=== PATIENT | female | born 1940 | race Hispanic/Latino ===

== ENCOUNTER 2020-04-16 15:17 | Inpatient (IN) | payer OTHER ==
--- OUTSIDE RECORDS SUMMARY | 2020-04-16 15:27 | XMS REPORT ---
:1940 Author Organization eClinicalWorks Care Team Providers Name Role Phone Naqvi, Na Provider Role Unavailable Allergies No Known Allergies Problems Problem Type Condition Code Onset Dates Condition Statu s Problem Tobacco abuse counseling Z71.6 Act eneida Problem Tobacco abuse Z72.0 Active Problem Pleural effusion J90 Active Problem Allergic rhinitis, unspecified J30.9 Active seasonality, unspecified trigger Problem COPD (chronic obstructive pulmonary J44.9 Active disease) Problem Elevated blood pressure reading I10 Active with diagnosis of hypertension Problem Obesity E66.9 Active Problem HTN (hypertension) I10 Active Problem Overactive bladder N32.81 Active Problem Cold intolerance R68.89 Active Problem Mild memory disturbance R41.3 Acti ve Problem 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 Active Problem Cigarette nicotine dependence with F17.218 Active other nicotine-induced disorder Problem Gastro-esophageal reflux disease K21.9 Active without esophagitis Problem Allergic rhinitis, seasonal J30.2 Active Problem Urinary incontinence R32 Active Problem Constipation, unspecified K59.00 Ac tive Problem Nicotine dependence F17.200 Active Problem Liver cyst K76.89 Active Problem Mixed hyperlipidemia E78.2 Active Problem Chronic obstructive pulmonary J44.0 Active disease with acute lower respiratory infection Problem CAD (coronary artery disease) I25.10 Active Problem Symptomatic postsurgical menopause E89.41 Active Problem Atelectasis of left lung J98.11 Act eneida Medications Medication Code Code Instructions Start End Date Status Dosage System Date Myrbetriq [facility] 07267512427 50 MG Orally February 09, April 10, Active 1 tablet Once a day 2019 [address] [facility] 89849010697 10 MG Inactive TAKE ONE TABLET BY MOUTH DAILY Results No Known Results Summary Purpose eClinicalWorks Submission
--- OUTSIDE RECORDS SUMMARY | 2020-04-16 15:27 | XMS REPORT | Continuity of Care Document ---
:1940 Author Organization [facility] t Address [address] [place] [address] Care Team Providers Name Role Phone Unavailable Unavailable Unavailable Problems Condition Condition Condition Status Onset Resolution Last Treating Co mments Source Name Details Category Date Date Treatment Clinician Date Tobacco Tobacco Problem Active [facility] counseling [facility] Tobacco Tobacco Problem Active [facility] abuse [facility] Cold Cold Problem Active [facility] intoleranc intoleranc [facility] - e e [facility] Gastro-eso Gastro-eso Problem Active [facility] phageal phageal [facility] - reflux reflux Memoria disease disease l without without Outpati esophagiti esophagiti en t s s Clinics Mixed Mixed Problem Active [facility] hyperlipid hyperlipid [facility] - emia emia [facility] l [facility]i ent Clin[facility] Obesity Obesity Problem Active [facility] Elevated Elevated Problem Active [facility] blood blood [facility] - pressure pressure Memori a reading reading l with with Outpati diagnosis diagnosis ent of of Clinics hypertensi hypertensi on on COPD COPD Problem Active [facility] (chronic (chronic [facility] - obstructiv obstructiv Me moria e e l pulmonary pulmonary Outp ati disease) disease) ent Clinics Mild Mild Problem Active [facility] memory memory [facility] - disturbanc disturbanc Me moria e e l Outpati ent Clinics Symptomati Symptomati Problem Active [facility] c c [facility] - postsurgic postsurgic Me moria al al l menopause menopause Outp ati ent Clinics Liver cyst Liver cyst Problem Active [facility] Nicotine Nicotine Problem Active [facility] dependence dependence [facility] Pleural Pleural Problem Active [facility] effusion effusion [facility] Atelectasi Atelectasi Problem Active [facility] s of left s of left [facility] - lung lung Memoria l [facility] ent [facility] Chronic Chronic Problem Active [facility] obstructiv obstructiv [facility] - e e Memoria pulmonary pulmonary l disease [facility] with acute with acute en t lower lower Clinics respirator respirator y y infection infection Urinary Urinary Problem Active [facility] incontinen incontinen [facility] - ce ce Memoria l [facility] ent [facility] Allergic Allergic Problem Active [facility] rhinitis, rhinitis, Luke [facility] - seasonal seasonal Memori a l [facility] ent Clinics CAD CAD Problem Active [facility] (coronary (coronary [facility] - artery artery Memoria disease) disease) l [facility] ent [facility] Constipati Constipati Problem Active [facility] on, on, [facility] - unspecifie unspecifie Me moria d d l [facility] Cigarette Cigarette Problem Active [facility] nicotine nicotine [facility] - dependence dependence Me mori with other with other l nicotine-i nicotine-i Ou tpati nduced nduced ent disorder disorder Clinic s Supplement Supplement Problem Active [facility] al oxygen al oxygen [facility] - dependent dependent Souleymane dylan l [facility] ent [facility] Overactive Overactive Problem Active [facility] bladder bladder [facility] - [facility] l [facility] Allergic Allergic Problem Active [facility] rhinitis, rhinitis, [facility] - unspecifie unspecifie Me moria d d l seasonalit seasonalit Ou tpati y, y, ent unspecifie unspecifie Cl inics d trigger d trigger Right Right Problem Active [facility] upper upper [facility] - quadrant quadrant Memori a pain pain l [facility] ent [facility] Allergies, Adverse Reactions, Alerts Allergy Allergy Status Severity Reaction(s) Onset Inactive Treating Comm ents Source Name Type Date Date Clinician penicill Adverse Active Info Not [facility] in Reaction Available [facility] Amoxicil Adverse Active Info Not [facility] laura Reaction Available [facility] Medications Ordered Filled Start Stop Current Ordering Indication Dosage Frequency Signature Comments Components Source Medication Medication Date Date Medication? Clinician (SIG) Name Name Incruse Incruse 2020- Yes Na Naqvi [address] Ellipta Ellipta 03-04 [facility] - 00:[facility]: 00:00 [facility]oria 00 :00 [facility] Spiriva Spiriva Yes Na Naqvi INHALE TWO [facility] Respimat Respimat PUFFS BY Hiral es - MOUTH [facility] DAILY l Outpati ent Clinics Immunizations Ordered Filled Immunization Date Status Comments Sourc e Immunization Name Name Nacho Griffith 2019-10-[address] [facility] - 00:[facility]00 [facility] Out[facility] Nacho FluADIN 2018-08-[address] [facility] - 00[facility]00 [facility] Out[facility] Procedures This patient has no known procedures. Encounters Start End Encounter Admission Attending Care Care Encounter Source Date/Time Date/Time Type Type Clinicians Facility Department ID 2020-03-03 2020-03-03 [facility] [id number] [facility] 10[facility] 2020-02-15 2020-02-15 [facility] [id number] [facility] 11[facility]12:00 11:12:00 [facility] Medicine Out[facility] Clinics 2020-02-11 2020-02-11 [facility] [id number] [facility] 14:00:00 14:00:00 [facility] Medicine Outpat[facility] Clinics 2020-02-10 2020-02-10 [facility] [id number] [facility] 09:24:00 09:24:00 [facility] Medicine Outpat[facility] Clinics 2020-02-08 2020-02-08 [facility] [id number] [facility] 13:30:00 13:30:00 [facility] Medicine Outpat[facility] Clinics 2020-01-04 2020-01-04 [facility] [id number] [facility] 15:49:00 15:49:00 [facility] Medicine Outpat[facility] Clinics 2019-10-06 2019-10-06 [facility] [id number] [facility] 10:00:00 10:00:00 [facility] Medicine Outpat[facility] Clinics 2019-10-06 2019-10-06 [facility] [id number] [facility] 08:00:00 08:00:00 t [facility] - [facility] Medicine Outpati ent Clinics 2019-06-29 2019-06-29 [facility] [id number] [facility] 13:40:00 13:40:00 t Vasopharm s - [facility] Medicine Outpati ent Clinics 2019-01-05 2019-01-05 [facility] [id number] [facility] 10:42:00 10:42:00 t Vasopharm s - [facility] Medicine Outpati ent Clinics 2018-12-17 2018-12-17 [facility] [id number] 14:45:00 14:45:00 t Viewpoint - [facility] Medicine Outpati ent Clinics 2018-08-20 2018-08-20 [facility] [id number] [facility] 15:30:00 15:30:00 t Vasopharm s - [facility] Medicine Outpati ent Clinics 2018-03-17 2018-03-17 [facility] [id number] [facility] 14:45:00 14:45:00 t [facility]opharm s - [facility] Medicine Outpati ent Clinics Results This patient has no known results.
--- OUTSIDE RECORDS SUMMARY | 2020-04-16 15:28 | XMS REPORT ---
:1940 Author Organization eClinicalWorks Care Team Providers Name Role Phone Naqvi, Na Provider Role Unavailable Allergies No Known Allergies Problems Problem Type Condition Code Onset Dates Condition Statu s Assessment COPD (chronic obstructive pulmonary J44.9 Active disease) Problem CAD (coronary artery disease) I25.10 Active Problem Atelectasis of left lung J98.11 Act eneida Problem Tobacco abuse counseling Z71.6 Act eneida Problem HTN (hypertension) I10 Active Problem Pleural effusion J90 Active Problem Cold intolerance R68.89 Active Problem Tobacco abuse Z72.0 Active Problem Overactive bladder N32.81 Active Problem Allergic rhinitis, unspecified J30.9 Active seasonality, unspecified trigger Problem Urinary incontinence R32 Active Problem COPD (chronic obstructive pulmonary J44.9 Active disease) Problem Right upper quadrant pain R10.11 Ac tive Problem Obesity E66.9 Active Problem Cigarette nicotine dependence with F17.218 Active other nicotine-induced disorder Problem Mild memory disturbance R41.3 Acti ve Problem Elevated blood pressure reading I10 Active with diagnosis of hypertension Problem 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 Active Problem Symptomatic postsurgical menopause E89.41 Active Problem Nicotine dependence F17.200 Active Problem Constipation, unspecified K59.00 Ac tive Problem Gastro-esophageal reflux disease K21.9 Active without esophagitis Problem Mixed hyperlipidemia E78.2 Active Problem Chronic obstructive pulmonary J44.0 Active disease with acute lower respiratory infection Problem Liver cyst K76.89 Active Problem Allergic rhinitis, seasonal J30.2 Active Medications Medication Code Code Instructions Start End Status Dosage System Date Date Montelukast NDC 01791181977 10 MG Orally February Active 1 t ablet Sodium Once a day 2019 Accolate NDC 56594729429 20 MG Inactive TAKE ONE TABLET BY MOUTH TWICE A DAY Results No Known Results Summary Purpose eClinicalWorks Submission
--- OUTSIDE RECORDS SUMMARY | 2020-04-16 15:28 | XMS REPORT ---
[...] Start End Status Dosage System Date Date Incruse NDC 94595521218 62.5 MCG/INH March 04, Aug 31, Active 1 puff Ellipta Inhalation Once 2019 2019 a day Spiriva NDC 69602783620 2.5 MCG/ACT Inactive INHALE Respimat TWO PUFFS BY MOUTH DAILY Results No Known Results Summary Purpose eClinicalWorks Submission
--- OUTSIDE RECORDS SUMMARY | 2020-04-16 15:28 | XMS REPORT ---
[...] Start End Status Dosage System Date Date Omeprazole ND 38592167360 40 MG Active TAKE ONE CAPSULE BY MOUTH DAILY Lisinopril ND 42843886670 10 MG Orally Active 1 ta blet Once a day VESIcare ND 09719592530 10 MG Active TAKE ONE TABLET BY MOUTH DAILY Verapamil HCl ND 90437968352 240 MG Orally Active 1 tablet ER Once a day Zyrtec Allergy ND 38618917819 10 MG Orally Active 1 tablet Once a day Omeprazole ND 54980233384 40 MG Orally Active 1 ca psule Once a day Xopenex HFA ND 10041158919 45 MCG/ACT Active INHAL E TWO PUFFS BY MOUTH EVERY 4 HOURS NEEDED Spiriva [facility] 11337957513 2.5 MCG/ACT Active INHALE T WO Respimat PUFFS BY MOUTH DAILY Lisinopril [facility] 11565251315 10 MG Orally Active 1 ta blet Once a day Spiriva [facility] 76080183207 2.5 microgram Active 2 puff s Respimat Inhaled Once a day Flonase [facility] 34673982005 50 MCG/ACT Active 2 spray i n Nasally Once a each day nostril Accolate [facility] 92524801992 20 MG Active TAKE ONE TABLET BY MOUTH TWICE A DAY VESIcare [facility] 78560639502 5 MG Orally Once Active 1 tablet a day Omeprazole [facility] 09790835372 40 MG Orally Active 1 ca psule Once a day Verapamil HCl [facility] 43293710191 240 MG Orally Active 1 tablet ER Once a day Advair Diskus [facility] 87059434775 250-50 MCG/DOSE Active 1 puff Inhalation Twice a day Dyazide [facility] 48025150266 37.5-25 MG Active TAKE ONE CAPSULE BY MOUTH EVERY MORNING Maxzide-25 [facility] 46648825644 37.5-25 MG Active 1 tabl et Orally Once a in the day morning Albuterol [facility] 74773573187 (2.5 MG/3ML) Active 3 ml as Sulfate 0.083% needed Inhalation Three times a day prn sob/wheezing Xopenex HFA [facility] 54804155209 45 MCG/ACT Active 1 puf f as Inhalation every needed 4 hrs Results No Known Results Summary Purpose eClinicalWorks Submission
--- OUTSIDE RECORDS SUMMARY | 2020-04-16 15:28 | XMS REPORT ---
:1940 Author Organization eClinicalWorks Care Team Providers Name Role Phone Naqvi, Na Provider Role Unavailable Allergies, Adverse Reactions, Alerts Substance Reaction Event Type penicillin Info Not Available Drug Allergy Amoxicillin Info Not Available Drug Allergy Problems Problem Type Condition Code Onset Dates Condition Statu s Assessment Overactive bladder N32.81 Active Assessment Allergic rhinitis, unspecified J30.9 Active seasonality, unspecified trigger Assessment Gastro-esophageal reflux disease K21.9 Active without esophagitis Assessment Right upper quadrant pain R10.11 Ac tive Assessment COPD (chronic obstructive pulmonary J44.9 Active disease) Assessment Elevated blood pressure reading I10 Active with diagnosis of hypertension Problem CAD (coronary artery disease) I25.10 Active [...] Start End Status Dosage System Date Date Xopenex HFA [facility] 34827551249 45 MCG/ACT Active INHAL E TWO PUFFS BY MOUTH EVERY 4 HOURS NEEDED Spiriva [facility] 33443928902 2.5 MCG/ACT Active INHALE T WO Respimat PUFFS BY MOUTH DAILY Omeprazole [facility] 21985192570 40 MG Orally Active 1 ca psule Once a day Myrbetriq [facility] 84630339712 50 MG Orally February 09April Active 1 t ablet Once a day 2019 Verapamil HCl [facility] 55923517402 240 MG Orally Active 1 tablet ER Once a day Lisinopril [facility] 49386415525 10 MG Orally Active 1 ta blet Once a day Advair Diskus [facility] 17063224735 250-50 MCG/DOSE Active 1 puff Inhalation Twice a day Zyrtec Allergy [facility] 75670730642 10 MG Orally Active 1 tablet Once a day VESIcare [facility] 82157089886 5 MG Orally Once Active 1 tablet a day Flonase [facility] 39456636400 50 MCG/ACT Active 2 spray i n Nasally Once a each day nostril Maxzide-25 [facility] 93193347722 37.5-25 MG Active 1 tabl et Orally Once a in the day morning VESIcare [facility] 59627119829 10 MG Active TAKE ONE TABLET BY MOUTH DAILY Albuterol [facility] 16824573578 (2.5 MG/3ML) Active 3 ml as Sulfate 0.083% needed Inhalation Three times a day prn sob/wheezing Xopenex HFA [facility] 23627736600 45 MCG/ACT Active 1 puf f as Inhalation every needed 4 hrs Omeprazole [facility] 56893263591 40 MG Orally Active 1 ca psule Once a day Accolate [facility] 11562936132 20 MG Active TAKE ONE TABLET BY MOUTH TWICE A DAY Results No Known Results Summary Purpose eClinicalWorks Submission
[2020-04-16 16:52] LABS: Absolute Lymphocytes (CBC) 1.6 K/uL (0.7-4.9); Basophils % 0.5 % (0-1.3); Hematocrit 32.8 % (36.0-45.0); Lymphocytes % 26.9 % (15.3-44.8); MPV 7.8 fL (7.6-11.3); RBC Red Blood Cell Count 3.43 M/uL (3.86-4.86)
[2020-04-16 17:15] LABS: Albumin 3.7 g/dL (3.4-5.0); Bilirubin Direct 0.1 mg/dL (0-0.2); Bilirubin Total 0.3 mg/dL (0.2-1.0); Magnesium 1.9 mg/dL (1.8-2.4); Potassium 5.2 mmol/L (3.5-5.1); Protein, Total 7.1 g/dL (6.4-8.2)
--- NOTE | 2020-04-16 17:30 | RAD REPORT ---
EXAM DESCRIPTION: Ila Single View04/16/2020 4:50 pm CLINICAL HISTORY: Cough COMPARISON: 2017 FINDINGS: Lungs are hyperaerated with bibasilar scarring. The lungs appear clear of acute infiltrate. The heart is borderline enlarged IMPRESSION: No acute abnormalities displayed
[2020-04-16] MEDS ORDERED: IPRATROPIUM BROM 0.5MG/2.5ML ONE (17:36)
[2020-04-16] MEDS ORDERED: METHYLPREDNISOLONE 125 MG INJ ONE (17:36)
[2020-04-16] MEDS ORDERED: LEVALBUTEROL 1.25 MG/3 ML NEB ONE (17:37)
[2020-04-16] MEDS ORDERED: NA CHLORIDE 0.9% 1,000 ML ONE (17:37)
[2020-04-16 17:40] LABS: Troponin (Emerg Dept Use Only) 1.21 ng/mL (0.0-0.045)
--- NOTE | 2020-04-16 17:56 | ER ---
Nurse's Notes [facility] Name: Amparo Rios Age: 79 yrs Sex: Female : 1940 Arrival Date: 04/16/2020 Time: 15:19 Bed 7 Private MD: Diagnosis: Dyspnea;Chronic obstructive pulmonary disease with (acute) exacerbation;Non-ST elevation (NSTEMI) myocardial infarction;Hyperkalemia;Unspecified kidney failure-insufficency Presentation: 04/16 15:52 Chief complaint: Patient states: "I took some cough syrup yesterday and I started aa5 choking on it, coughing, and I've been short of breath ever since". Pt also c/o "choking feeling to throat". Pt reports hx of COPD. Reports baseline cough, reports increased SOB. 15:52 Coronavirus screen: Patient reports a cough. Patient reports shortness of breath or aa5 difficulty breathing. Patient denies measured and/or subjective temperature greater than 100.4F prior to today's visit. Patient denies travel on a cruise ship or to a country the [facility] currently lists as an affected area. Patient denies contact with known and/or suspected case of COVID-19. Ebola Screen: Patient negative for fever greater than or equal to 101.5 degrees Fahrenheit, and additional compatible Ebola Virus Disease symptoms. Initial Sepsis Screen: Does the patient meet any 2 criteria? No. Patient's initial sepsis screen is negative. Does the patient have a suspected source of infection? No. Patient's initial sepsis screen is negative. Risk Assessment: Do you want to hurt yourself or someone else? Patient reports no desire to harm self or others. Onset of symptoms was April 2020. 15:52 Acuity: FACUNDO 3 aa5 15:52 Method Of Arrival: Ambulatory aa5 Historical: - Allergies: 15:53 PENICILLINS; aa5 - PMHx: 15:53 COPD; Emphysema; Hyperlipidemia; Hypertension; Urinary Incontinence; aa5 - PSHx: 15:53 ; Cholecystectomy; Hysterectomy; aa5 - Immunization history:: Adult Immunizations unknown. - Family history:: not pertinent. - Social history:: Smoking status: Patient denies any tobacco usage or history of. Screenin:00 Abuse screen: Denies threats or abuse. Denies injuries from another. Nutritional jl7 screening: No deficits noted. Tuberculosis screening: No symptoms or risk factors identified. Fall Risk IV access (20 points). Gait- Weak (10 pts.). Mental Status- Oriented to own ability (0 pts). Total King Fall Scale indicates Low Risk Score (25-44 pts). Fall prevention measures have been instituted. Side Rails Up X 2 Placed close to Nursing Station Frequent Obs/Assesments occuring Family Present and informed to notify staff if they need to leave bedside As available Patient and Family Educated on Fall Prevention Program and strategies. Assessment: 16:00 Reassessment: Family member at bedside. jl7 18:00 General: Appears in no apparent distress. uncomfortable, Behavior is calm, cooperative, jl7 appropriate for age. Pain: Denies pain. Neuro: Level of Consciousness is awake, alert, obeys commands, Oriented to person, place, time, situation. Cardiovascular: Heart tones present Patient's skin is warm and dry. Rhythm is regular. Respiratory: Airway is patent Respiratory effort is even, unlabored, Respiratory pattern is regular, symmetrical, Breath sounds are clear bilaterally. GI: abdominal hernia noted. Derm: Skin is pink, warm \\T\\ dry. 19:05 General: Appears in no apparent distress. comfortable, Behavior is calm, cooperative, rr5 appropriate for age, awaiting for room assignment. Pain: Denies pain. Neuro: Level of Consciousness is awake, alert, obeys commands, Oriented to person, place, time, situation. Cardiovascular: Capillary refill < 3 seconds Patient's skin is warm and dry. Respiratory: Airway is patent Respiratory effort is even, unlabored, Respiratory pattern is regular, symmetrical. GI: No signs and/or symptoms were reported involving the gastrointestinal system. : No signs and/or symptoms were reported regarding the genitourinary system. EENT: No signs and/or symptoms were reported regarding the EENT system. Derm: Skin is intact, is healthy with good turgor, Skin temperature is warm. Musculoskeletal: Circulation, motion, and sensation intact. Capillary refill < 3 seconds. 20:55 Reassessment: Patient appears in no apparent distress at this time. Patient is alert, rr5 oriented x 3, equal unlabored respirations, skin warm/dry/pink. [employer] order for the repeat troponin extracted and sent to laboratory. transfer to ICU per stretcher. awake alert, no complaints made. snacks given. Patient denies pain at this time. Patient states symptoms have improved. 21:00 Reassessment: hospitalist at bedside examining the patient. rr5 Vital Signs: 15:53 BP 128 / 68; Pulse 92; Resp 18 S; Temp 99.2(TE); Pulse Ox 96% on R/A; Weight 61.23 kg aa5 (R); Height 5 ft. 2 in. (157.48 cm) (R); 17:00 BP 101 / 69; Pulse 75; Resp 19; Pulse Ox 96% ; jl7 18:00 BP 122 / 74; Pulse 81; Resp 21; Pulse Ox 100% ; jl7 19:10 BP 94 / 59; Pulse 84; Resp 18; Pulse Ox 98% ; rr5 20:12 BP 103 / 63; Pulse 80; Resp 19; Temp 97.6; Pulse Ox 99% ; rr5 20:49 BP 103 / 63; Pulse 80; Resp 20; Pulse Ox 97% ; Pain 0/10; rr5 15:53 Body Mass Index 24.69 (61.23 kg, 157.48 cm) aa5 ED Course: 15:19 Patient arrived in ED. ag5 15:49 Soham Plata MD is Attending Physician. anupam 15:52 Arm band placed on Patient placed in an exam room, on a stretcher. aa5 16:00 Patient has correct armband on for positive identification. Placed in gown. Bed in low jl7 position. Call light in reach. Side rails up X2. Adult w/ patient. ekg monitor tech on. Pulse ox on. NIBP on. Warm blanket given. 16:09 Triage completed. aa5 16:21 Joe Bray, AMISH is Primary Nurse. jl7 16:30 Initial lab(s) drawn, by ED staff, sent to lab. EKG done, by ED staff, reviewed by pa Plata MD. Inserted saline lock: 22 gauge in right forearm, using aseptic technique. Blood collected. 16:50 XRAY Chest (1 view) In Process Unspecified. EDMS 17:51 Christelle Ha MD is Hospitalizing Provider. anupam 18:45 CT Chest For PE Angio In Process Unspecified. EDMS 19:20 No provider procedures requiring assistance completed. Patient admitted, IV remains in jl7 place. intact, No redness/swelling at site. Administered Medications: 17:30 Drug: NS 0.9% 1000 ml Route: IV; Rate: 125 ml/hr; Site: right forearm; aa5 19:20 Follow up: IV Status: Infusion continued upon admission jl7 17:30 Drug: Xopenex 1.25 mg Route: Inhalation; aa5 19:20 Follow up: Response: No adverse reaction jl7 17:30 Drug: AtroVENT Aerosol 0.5 mg Route: Inhalation; aa5 19:20 Follow up: Response: No adverse reaction jl7 17:30 Drug: Xopenex 1.25 mg Route: Inhalation; aa5 19:21 Follow up: Response: No adverse reaction jl7 17:30 Drug: SOLU-Medrol 125 mg Route: IVP; Site: right forearm; aa5 19:21 Follow up: Response: No adverse reaction jl7 18:31 Drug: Lovenox 1 mg/kg Route: Sub-Q; Site: abdomen; jl7 19:21 Follow up: Response: No adverse reaction jl7 18:31 Drug: NS 0.9% 500 ml Route: IV; Rate: bolus; Site: right forearm; jl7 19:21 Follow up: Response: No adverse reaction; IV Status: Completed infusion; IV Intake: jl7 500ml 18:31 Drug: PlaVIX 300 mg Route: PO; jl7 19:21 Follow up: Response: No adverse reaction jl7 18:31 Drug: Mucomyst - Acetylcysteine 600 mg Route: PO; jl7 19:20 Follow up: Response: No adverse reaction jl7 18:32 Drug: Aspirin Chewable Tablet 324 mg Route: PO; jl7 19:21 Follow up: Response: No adverse reaction jl7 19:28 Drug: Pepcid 20 mg Route: IVP; Site: right forearm; ea 20:50 Follow up: Response: No adverse reaction rr5 Intake: 19:21 IV: 500ml; Total: 500ml. jl7 Outcome: 17:56 Decision to Hospitalize by Provider. anupam 20:46 Admitted to ICU accompanied by nurse, via stretcher, room ICU 3, with chart, Report rr5 called to justus 20:46 Condition: stable 20:46 Instructed on the need for admit. 21:28 Patient left the ED. rr5 Signatures: Dispatcher [employer] Soham Steel MD MD cha Calderon, Audri, RN RN aa5 Joe Bray, RN RN jl7 Alicia Bradley RN RN ea Clarke Castro RN RN rr5 Anibal Noyola ag5
--- NOTE | 2020-04-16 17:56 | EDPHYS ---
Physician Documentation [facility] Name: Amparo Rios Age: 79 yrs Sex: Female : 1940 Arrival Date: 04/16/2020 Time: 15:19 Bed 7 Private MD: ED Physician Soham Plata HPI: 04/16 16:06 This 79 yrs old Female presents to ER via Unassigned with complaints of anupam Shortness Of Breath. 16:06 The patient has shortness of breath at rest. Onset: The symptoms/episode began/occurred anupam last night. Duration: The symptoms are continuous, and are steadily getting worse. The patient's shortness of breath is aggravated by coughing, is alleviated by elevating head, application of supplemental oxygen. Associated signs and symptoms: Pertinent positives: non-productive cough. Severity of symptoms: At their worst the symptoms were moderate in the emergency department the symptoms have improved mildly. The patient has experienced similar episodes in the past, a few times. Historical: - Allergies: 15:53 PENICILLINS; aa5 - PMHx: 15:53 COPD; Emphysema; Hyperlipidemia; Hypertension; Urinary Incontinence; aa5 - PSHx: 15:53 ; Cholecystectomy; Hysterectomy; aa5 - Immunization history:: Adult Immunizations unknown. - Family history:: not pertinent. - Social history:: Smoking status: Patient denies any tobacco usage or history of. ROS: 16:07 Constitutional: Negative for fever, chills, and weight loss, Eyes: Negative for injury, anupam pain, redness, and discharge, ENT: Negative for injury, pain, and discharge, Neck: Negative for injury, pain, and swelling, Cardiovascular: Negative for chest pain, palpitations, and edema, Abdomen/GI: Negative for abdominal pain, nausea, vomiting, diarrhea, and constipation, Back: Negative for injury and pain, : Negative for injury, bleeding, discharge, and swelling, MS/Extremity: Negative for injury and deformity, Skin: Negative for injury, rash, and discoloration, Neuro: Negative for headache, weakness, numbness, tingling, and seizure, Psych: Negative for depression, anxiety, suicide ideation, homicidal ideation, and hallucinations, Allergy/Immunology: Negative for hives, rash, and allergies, Endocrine: Negative for neck swelling, polydipsia, polyuria, polyphagia, and marked weight changes, Hematologic/Lymphatic: Negative for swollen nodes, abnormal bleeding, and unusual bruising. 16:07 Respiratory: Positive for cough, shortness of breath, at rest. Exam: 16:07 Constitutional: This is a well developed, well nourished patient who is awake, alert, anupam and in no acute distress. Head/Face: Normocephalic, atraumatic. Eyes: Pupils equal round and reactive to light, extra-ocular motions intact. Lids and lashes normal. Conjunctiva and sclera are non-icteric and not injected. Cornea within normal limits. Periorbital areas with no swelling, redness, or edema. ENT: Nares patent. No nasal discharge, no septal abnormalities noted. Tympanic membranes are normal and external auditory canals are clear. Oropharynx with no redness, swelling, or masses, exudates, or evidence of obstruction, uvula midline. Mucous membranes moist. Neck: Trachea midline, no thyromegaly or masses palpated, and no cervical lymphadenopathy. Supple, full range of motion without nuchal rigidity, or vertebral point tenderness. No Meningismus. Chest/axilla: Normal chest wall appearance and motion. Nontender with no deformity. No lesions are appreciated. Cardiovascular: Regular rate and rhythm with a normal S1 and S2. No gallops, murmurs, or rubs. Normal PMI, no JVD. No pulse deficits. Abdomen/GI: Soft, non-tender, with normal bowel sounds. No distension or tympany. No guarding or rebound. No evidence of tenderness throughout. Back: No spinal tenderness. No costovertebral tenderness. Full range of motion. Female : Normal external genitalia. Skin: Warm, dry with normal turgor. Normal color with no rashes, no lesions, and no evidence of cellulitis. MS/ Extremity: Pulses equal, no cyanosis. Neurovascular intact. Full, normal range of motion. Neuro: Awake and alert, GCS 15, oriented to person, place, time, and situation. Cranial nerves II-XII grossly intact. Motor strength 5/5 in all extremities. Sensory grossly intact. Cerebellar exam normal. Normal gait. Psych: Awake, alert, with orientation to person, place and time. Behavior, mood, and affect are within normal limits. 16:07 Respiratory: the patient does not display signs of respiratory distress, Respirations: no acute changes, Breath sounds: are clear throughout, no bronchial sounds, no decreased breath sounds, no rales, no stridor, no wheezing, rhonchi. 18:04 ECG was reviewed by the Attending Physician. [facility] Vital Signs: 15:53 BP 128 / 68; Pulse 92; Resp 18 S; Temp 99.2(TE); Pulse Ox 96% on R/A; Weight 61.23 kg aa5 (R); Height 5 ft. 2 in. (157.48 cm) (R); 17:00 BP 101 / 69; Pulse 75; Resp 19; Pulse Ox 96% ; jl7 18:00 BP 122 / 74; Pulse 81; Resp 21; Pulse Ox 100% ; jl7 19:10 BP 94 / 59; Pulse 84; Resp 18; Pulse Ox 98% ; rr5 20:12 BP 103 / 63; Pulse 80; Resp 19; Temp 97.6; Pulse Ox 99% ; rr5 20:49 BP 103 / 63; Pulse 80; Resp 20; Pulse Ox 97% ; Pain 0/10; rr5 15:53 Body Mass Index 24.69 (61.23 kg, 157.48 cm) aa5 MDM: 15:53 Patient medically screened. [facility] 16:08 Differential diagnosis: asthma, Bronchitis CHF exacerbation, Chronic Obstructive anupam Pulmonary Disease Myocardial Infarction pneumonia, pulmonary edema, Pulmonary Embolism reactive airway disease, Unstable Angina. Antibiotic administration: Not indicated. The patient's Wells Deep Vein Thrombosis Score was calculated as follows: Total Score: 0-2 Pts- Low Risk. The patient's pulmonary embolism risk score was calculated as follows: Total Score: 0-2 points. This patient was found to be at low risk for a pulmonary embolism by using the Well's assessment criteria. Immunization status: Pneumococcal vaccine: Influenza vaccine: Not up to date. Data reviewed: vital signs, nurses notes, lab test result(s), EKG, radiologic studies. Data interpreted: desk monitor: rate is 78 beats/min, rhythm is normal sinus rhythm, Pulse oximetry: on room air is 98 %. Test interpretation: by ED physician or midlevel provider: ECG, plain radiologic studies. Counseling: I had a detailed discussion with the patient and/or guardian regarding: the historical points, exam findings, and any diagnostic results supporting the discharge/admit diagnosis. 18:40 Awaiting: CT scan results, waiting for transport. ED course: dw case with dr longoria, to [facility] icu, ct pe study pending, pt without cp, still with mild sob, hemodynamically stable. 19:06 Medication response: albuterol nebulizer treatment(s) partially relieved the patient's [facility] wheezing. 19:16 ED course: CT CHEST NEG FOR PE, LUNG SCARRING ONLY. [facility] 04/16 16:05 Order name: Basic Metabolic Panel; Complete Time: 17:45 [facility] 04/16 16:05 Order name: CBC with Diff; Complete Time: 17:06 [facility] 04/16 16:05 Order name: LFT's; Complete Time: 17:45 [facility] 04/16 16:05 Order name: Magnesium; Complete Time: 17:45 [facility] 04/16 16:05 Order name: NT PRO-BNP; Complete Time: 17:45 [facility] 04/16 16:05 Order name: Troponin (emerg Dept Use Only); Complete Time: 17:45 [facility] 04/16 16:05 Order name: XRAY Chest (1 view); Complete Time: 17:45 [facility] 04/16 16:05 Order name: Blood Culture Adult (2) [facility] 04/16 16:05 Order name: D-Dimer; Complete Time: 17:26 [facility] 04/16 17:26 Order name: CT Chest For PE Angio [facility] 04/16 20:08 Order name: Urine Microscopic Only rr 04/16 20:28 Order name: Urine Dipstick--Ancillary (enter results) [facility] 04/16 21:04 Order name: Urine Dipstick-Ancillary EDND 04/16 16:05 Order name: EKG; Complete Time: 16:06 [facility] 04/16 16:05 Order name: Cardiac monitoring; Complete Time: 18:11 [facility] 04/16 16:05 Order name: EKG - Nurse/Tech; Complete Time: 18:42 [facility] 04/16 16:05 Order name: IV Saline Lock; Complete Time: 18:11 [facility] 04/16 16:05 Order name: Labs collected and sent; Complete Time: 18:11 [facility] 04/16 16:05 Order name: O2 Per Protocol; Complete Time: 18:11 [facility] 04/16 16:05 Order name: O2 Sat Monitoring; Complete Time: 18:11 [facility] 04/16 16:05 Order name: Urine Dipstick-Ancillary (obtain specimen); Complete Time: 20:08 [facility] EC:04 Rate is 82 beats/min. Rhythm is regular. QRS [place] is Normal. LA interval is normal. QRS anupam interval is normal. QT interval is normal. No Q waves. T waves are Normal. No ST changes noted. Clinical impression: Abnormal EKG without significant change. Interpreted by me. Reviewed by me. Administered Medications: 17:30 Drug: NS 0.9% 1000 ml Route: IV; Rate: 125 ml/hr; Site: right forearm; aa5 19:20 Follow up: IV Status: Infusion continued upon admission jl7 17:30 Drug: Xopenex 1.25 mg Route: Inhalation; aa5 19:20 Follow up: Response: No adverse reaction jl7 17:30 Drug: AtroVENT Aerosol 0.5 mg Route: Inhalation; aa5 19:20 Follow up: Response: No adverse reaction jl7 17:30 Drug: Xopenex 1.25 mg Route: Inhalation; aa5 19:21 Follow up: Response: No adverse reaction jl7 17:30 Drug: SOLU-Medrol 125 mg Route: IVP; Site: right forearm; aa5 19:21 Follow up: Response: No adverse reaction jl7 18:31 Drug: Lovenox 1 mg/kg Route: Sub-Q; Site: abdomen; jl7 19:21 Follow up: Response: No adverse reaction 7 18:31 Drug: NS 0.9% 500 ml Route: IV; Rate: bolus; Site: right forearm; jl7 19:21 Follow up: Response: No adverse reaction; IV Status: Completed infusion; IV Intake: jl7 500ml 18:31 Drug: PlaVIX 300 mg Route: PO; jl7 19:21 Follow up: Response: No adverse reaction jl7 18:31 Drug: Mucomyst - Acetylcysteine 600 mg Route: PO; jl7 19:20 Follow up: Response: No adverse reaction jl7 18:32 Drug: Aspirin Chewable Tablet 324 mg Route: PO; jl7 19:21 Follow up: Response: No adverse reaction jl7 19:28 Drug: Pepcid 20 mg Route: IVP; Site: right forearm; ea 20:50 Follow up: Response: No adverse reaction rr5 Disposition: 04/16/20 17:56 Hospitalization ordered by Christelle Longoria for Inpatient Admission. Preliminary diagnosis are Dyspnea, Chronic obstructive pulmonary disease with (acute) exacerbation, Non-ST elevation (NSTEMI) myocardial infarction, Hyperkalemia, Unspecified kidney failure - insufficency. - Bed requested for Intensive Care Unit. - Status is Inpatient Admission. rr5 - Condition is Stable. - Problem is new. - Symptoms have improved. Signatures: Dispatcher [employer] EDSoham Ayon MD MD cha Calderon, Audri, RN RN aa5 Nohemi Roldan, RN RN cg Joe Bray RN RN jl7 Alicia Bradley RN RN Clarke Berrios RN RN rr5 Corrections: (The following items were deleted from the chart) 20:23 17:56 Hospitalization Ordered by Christelle Longoria MD for Inpatient Admission. Preliminary cg diagnosis is Dyspnea; Chronic obstructive pulmonary disease with (acute) exacerbation; Non-ST elevation (NSTEMI) myocardial infarction; Hyperkalemia; Unspecified kidney failure - insufficency. Bed requested for Intensive Care Unit. Status is Inpatient Admission. Condition is Stable. Problem is new. Symptoms have improved. anupam 21:28 20:23 04/16/2020 17:56 Hospitalization Ordered by Christelle Longoria MD for Inpatient rr5 Admission. Preliminary diagnosis is Dyspnea; Chronic obstructive pulmonary disease with (acute) exacerbation; Non-ST elevation (NSTEMI) myocardial infarction; Hyperkalemia; Unspecified kidney failure - insufficency. Bed requested for Intensive Care Unit. Status is Inpatient Admission. Condition is Stable. Problem is new. Symptoms have improved. cg
[2020-04-16] MEDS ORDERED: ENOXAPARIN 60 MG/0.6 ML SQ SCH (18:00)
[2020-04-16] MEDS ORDERED: CLOPIDOGREL 75 MG TABLET ONE (18:23)
[2020-04-16] MEDS ORDERED: NA CHLORIDE 0.9% 500 ML ONE (18:23)
[2020-04-16] MEDS ORDERED: ENOXAPARIN 60 MG/0.6 ML SQ ONE (18:23)
[2020-04-16] MEDS ORDERED: ACETYLCYST 6,000 MG/30 ML VIAL ONE (18:23)
[2020-04-16] MEDS ORDERED: ASPIRIN 81 MG CHEWABLE TABLET ONE (18:24)
--- NOTE | 2020-04-16 19:14 | RAD REPORT ---
EXAM DESCRIPTION: CT - Chest For Pe Angio - 04/16/2020 6:45 pm CLINICAL HISTORY: cough/sob COMPARISON: 2012 TECHNIQUE: Dynamically enhanced axial 3 mm thick images of the chest were obtained during administra tion of <100> mL Isovue 370 IV contrast. Coronal and oblique reconstruction images were generated and reviewed. Exam utilizes a protocol for optimal evaluation of pulmonary arterial tree. Maximum intensity projections 3D imaging was utilized All CT scans are performed using dose optimization technique as appropriate and may include automated exposure control or mA/KV adjustment according to patient size. FINDINGS: A pulmonary embolus is not seen. A thoracic aortic aneurysm is not noted. A pleural effusion is not seen. A pericardial effusion is not seen. A lung consolidation is not present. Areas of scarring within the lungs Hepatic hemangioma IMPRESSION: Negative for a pulmonary embolism.
[2020-04-16] MEDS ORDERED: NITROGLYCERIN 0.4 MG/TAB SL PRN (19:51)
[2020-04-16] MEDS ORDERED: ONDANSETRON 4 MG/2 ML VIAL IV PRN (19:51)
[2020-04-16] MEDS ORDERED: ACETAMINOPHEN 500 MG TAB PO PRN (19:51)
[2020-04-16] MEDS ORDERED: IPRATROPIUM BROM 0.5MG/2.5ML NEB PRN (19:51)
[2020-04-16] MEDS ORDERED: ALBUTEROL 2.5 MG/3 ML NEB SOL NEB PRN (19:51)
[2020-04-16] MEDS: METOPROLOL TAR 50 MG TAB PO SCH (21:00)
[2020-04-16 21:03] LABS: Urine Blood NEGATIVE (NEG); Urine Glucose NEGATIVE (NEG); Urine Protein NEGATIVE (NEG); Urine pH 5.5 (5.0-7.0)
--- NOTE | 2020-04-16 21:32 | P.HP ---
Certification for Inpatient Patient admitted to: Inpatient With expected LOS: >2 Midnights Practitioner: I am a practitioner with admitting privileges, knowledge of patient current condition, hospital course, and medical plan of care. Services: Services provided to patient in accordance with Admission requirements found in Title 42 Section 412.3 of the Code of Federal Regulations Patient History Date of Service: 04/16/20 Reason for admission: Shortness of breath History of Present Illness: 79-year-old woman with a history COPD presented to the emergency department due to sudden onset of shortness of breath. Patient report she choked on a cough syrup last night, developed severe coughing spell and later shortness of breath with wheezing. She used her inhalers and nebulizers without much improvement. Her symptoms became worse through the day and therefore presented to the ED. CTA thorax done in the ED was unremarkable and negative for pulmonary embolism or infiltrate. Patient denies any fever or chest pain. Her symptoms improved significantly after a dose of IV steroid and nebulizers in the ED. She has not required oxygen. Patient is placed under observation for further management of COPD exacerbation. Allergies Penicillins Allergy (Verified 04/16/20 20:59) Hives/Rash Home Medications: Fluticasone [Flonase 50MCG Nasal [place]*] 04/16/20 Fluticasone/Salmeterol [Advair 250-50 Diskus] 04/16/20 Levalbuterol Tartrate [Levalbuterol Tartrate Hfa] 04/16/20 Lisinopril [Zestril] 20 mg PO DAILY 04/16/20 Mirabegron [Myrbetriq] 50 mg PO DAILY 04/16/20 Omeprazole 40 mg PO DAILY 04/16/20 Tiotropium [place] [Spiriva Respimat] 04/16/20 Triamterene/Hydrochlorothiazid [Triamterene-Hctz 37.5-25 mg Tb] 1 tab PO DAILY 04/16/20 Verapamil HCl [Verapamil ER] 240 mg PO DAILY 04/16/20 Zafirlukast 20 mg PO BID 04/16/20 - Past Medical/Surgical History -: COPD -: Hypertension -: Urine incontinence -: Cholecystectomy, section, hysterectomy - Family History Family History: Reviewed- Non-Contributory - Family History Father -: Heart disease, Hypertension, Diabetes - Social History Smoking Status: Current every day smoker Alcohol use: No CD- Drugs: No Place of Residence: Home Review of Systems Other: Except as documented, all other systems reviewed and negative. Physical Examination - Physical Exam General: Alert, In no apparent distress, Oriented x3 HEENT: Mucous membr. moist/pink, Sclerae nonicteric Neck: Supple, JVD not distended Respiratory: Clear to auscultation bilaterally, Normal air movement Cardiovascular: No edema, Regular rate/rhythm, Normal S1 S2 Capillary refill: <2 Seconds Gastrointestinal: Normal bowel sounds, Soft and benign, No tenderness Musculoskeletal: No swelling, No erythema Integumentary: No rashes Neurological: Normal speech, Normal strength at 5/5 x4 extr - Studies Laboratory Data (last 24 hrs) 04/16/20 16:30: WBC 6.0, Hgb 11.1 L, Hct 32.8 L, Plt Count 246 04/16/20 16:30: Sodium 138, Potassium 5.2 H, BUN 34 H, Creatinine 1.29, Glucose 101, Magnesium 1.9, Total Bilirubin 0.3, AST 25, ALT 17, Alkaline Phosphatase 102 Assessment and Plan - Problems (Diagnosis) (1) COPD exacerbation Current Visit: Yes Status: Acute (2) Essential hypertension Current Visit: Yes Status: Acute - Plan Place under observation. Start IV steroid, scheduled DuoNeb, albuterol p.r.n. No indication for antibiotics at this time. Supplemental oxygen as needed. Continue other home medications. - Advance Directives Does patient have a Living Will: No Does patient have a Durable POA for Healthcare: No
[2020-04-17 00:09] VITALS: BMI 24.7
[2020-04-17] MEDS: METHYLPREDNISOLONE 40 MG INJ IV SCH ×2 (00:35→08:38)
[2020-04-17] MEDS: ATORVASTATIN 80 MG TAB PO SCH ×2 (00:54→21:15)
[2020-04-17 05:24] LABS: Absolute Lymphocytes (CBC) 0.7 K/uL (0.7-4.9); Basophils % 0.6 % (0-1.3); Hematocrit 31.8 % (36.0-45.0); Lymphocytes % 19.1 % (15.3-44.8); MPV 8.1 fL (7.6-11.3); RBC Red Blood Cell Count 3.31 M/uL (3.86-4.86)
[2020-04-17 05:38] LABS: Potassium 5.4 mmol/L (3.5-5.1)
[2020-04-17] MEDS ORDERED: SOD POLYSTYREN SUL 15 GM/60 ML UCUP PO ONE (07:31)
[2020-04-17] MEDS: lisinopriL 10 MG TAB PO SCH (08:37)
[2020-04-17] MEDS: ASPIRIN EC 81 MG TAB PO SCH (08:37)
[2020-04-17] MEDS: METOPROLOL TAR 50 MG TAB PO SCH ×2 (08:37→21:15)
--- NOTE | 2020-04-17 10:20 | PN ---
Date of Progress Note: 04/17/2020 Patient seen and examined. Chart reviewed and case discussed with RN. Patient does not have any acu te events overnight. No complaints. She denies any shortness of breath or chest pain. Medications: List reviewed. Code Status: Full code. No medical power of city attorney or living will. Physical Examination: Vital Signs: Temperature 98.3, heart rate 76, blood pressure 128/79, respirations 15, O2 95% on room air. General: Awake, alert, oriented x3. Elderly female, not in any acute distress. CV: S1, S2. Regular rate and rhythm. Peripheral pulses present. Respiratory: Moving air well bilaterally. No wheezing or stridor. No use of accessory muscles. Gastrointestinal: Abdomen is soft, nontender, nondistended. Positive bowel sounds. No guarding or rigidity. Extremities: No clubbing, cyanosis, or edema. No calf tenderness. Neuro: Cranial nerves 2 through 12 intact grossly. No focal neurological deficits. Speech is sabrina l. Skin: No rashes. Normal skin turgor. Psych: Mood is okay. Affect is full. Insight and judgment are good. Laboratory Data: Sodium 138, potassium 5.4, chloride 113, CO2 19, BUN 30, creatinine 1.15, glucose 1 49, calcium 8.3. Troponin levels 1.21, 0.95, 0.81. Triglycerides 72, cholesterol 186, LDL 110, HDL 62. D-dimer 709. WBC 3.8, H and H 10.4 and 31.8, platelets 223, neutrophils 71%. UA is negative. Blood cultures pending. CT angio chest shows negative for PE, hepatic hemangioma. Assessment And Plan: 79-year-old female with: 1.Cil-RQ-ujnxvghek myocardial infarction. Patient currently on chest pain guidelines and therapeuti c Lovenox. Cardiology has been consulted. May need a stress test or further intervention. No chest pain at this time. Troponin levels elevated at 1.21. 2.Acute chronic obstructive pulmonary disease exacerbation. Continue with nebulizer treatments. We will wean off steroids, significantly improved. 3.Essential hypertension, stable. 4.Hepatic hemangioma. Patient will need to have repeat imaging. 5.Left bundle branch block. 6.Deep vein thrombosis prophylaxis. Patient is on therapeutic Lovenox. Plan: Follow up with Cardiology recommendations. Step down from ICU. SA/MODL Voice ID: [id number] Report ID: [id number]
[2020-04-17] MEDS ORDERED: HEPARIN/D5W 25,000 UNIT/500 ML BAG IV SCH (14:00)
[2020-04-17] MEDS ORDERED: FLUTICASONE 50MCG NASAL SPRAY NAS PRN (14:06)
[2020-04-17] MEDS ORDERED: LEVALBUTEROL TARTRATE IH PRN (14:06)
[2020-04-17 16:37] LABS: Protime INR 1.03
[2020-04-17] MEDS ORDERED: ZAFIRLUKAST 20 MG TAB PO SCH (21:00)
[2020-04-17] MEDS: predniSONE 20 MG TAB PO SCH (21:16)
[2020-04-18] MEDS: ASPIRIN EC 81 MG TAB PO SCH (05:35)
[2020-04-18] MEDS: METOPROLOL TAR 50 MG TAB PO SCH (05:36)
[2020-04-18] MEDS: lisinopriL 10 MG TAB PO SCH (05:36)
[2020-04-18 05:40] LABS: Absolute Lymphocytes (CBC) 0.9 K/uL (0.7-4.9); Basophils % 0.2 % (0-1.3); MPV 8.4 fL (7.6-11.3); RBC Red Blood Cell Count 3.16 M/uL (3.86-4.86)
[2020-04-18 05:57] LABS: Albumin 3.1 g/dL (3.4-5.0); Bilirubin Total 0.3 mg/dL (0.2-1.0); Potassium 4.4 mmol/L (3.5-5.1); Protein, Total 5.9 g/dL (6.4-8.2)
[2020-04-18] MEDS ORDERED: NA CHLORIDE 0.9% 1,000 ML ONE (06:05)
[2020-04-18] MEDS ORDERED: PANTOPRAZOLE 40MG TABLET PO SCH (06:30)
[2020-04-18] MEDS ORDERED: HEPA 1000U/500MLS 2,000 UNIT/1,000 ML BAG IV ONE (07:16)
[2020-04-18] MEDS ORDERED: TIOTROPIUM BROMIDE IH SCH (09:00)
[2020-04-18] MEDS ORDERED: SALMETEROL IH SCH (09:00)
[2020-04-18] MEDS ORDERED: HOME MED 1 EA UNK (Omeprazole [Omeprazole] 40 MG) PO SCH (09:00)
[2020-04-18] MEDS ORDERED: HOME MED 1 EA UNK (Mirabegron [Myrbetriq] 50 MG) PO SCH (09:00)
[2020-04-18] MEDS: predniSONE 20 MG TAB PO SCH (09:00)
[2020-04-18] MEDS ORDERED: FLUTICASONE IH SCH (09:00)
[2020-04-18] MEDS ORDERED: MIDAZOLAM HCL 2 MG/2 ML INJ ONE (09:55)
[2020-04-18] MEDS ORDERED: HEPARIN 5000 UNIT/ML 1 ML VIAL ONE ×2 (09:55→09:56)
[2020-04-18] MEDS ORDERED: FENTANYL CITR 100 MCG/2 ML ONE (09:55)
[2020-04-18] MEDS ORDERED: ATROPINE SULF 1 MG/10 ML SYR IV ONE (09:56)
[2020-04-18] MEDS ORDERED: NICARDIPINE HCL 25 MG/10 ML IV ONE (09:56)
--- NOTE | 2020-04-18 11:18 | P.PN ---
Subjective Date of Service: 04/18/20 Primary Care Provider: Unknown Chief Complaint: Shortness of breath Subjective: Improving, Doing well Physical Examination - Vital Signs Temperature: 97.2 F Blood Pressure: 98/51 Pulse: 59 Respirations: 18 Pulse Ox (%): 98 - Physical Exam General: Alert, In no apparent distress, Oriented x3, Cooperative HEENT: Atraumatic Neck: Supple Respiratory: Clear to auscultation bilaterally, Normal air movement Cardiovascular: Normal pulses, Regular rate/rhythm Gastrointestinal: Normal bowel sounds, Soft and benign, Non-distended Neurological: Normal speech, Normal strength at 5/5 x4 extr, Normal tone, Normal affect - Studies Medications List Reviewed: Yes Assessment & Plan Discharge Plan: Home Plan to discharge in: 24 Hours Physician Review Additional Text: Impression: Shortness of breath secondary to NSTEMI complicated with COPD exacerbation Hypertension Hyperlipidemia GERD Plan: Shortness of breath secondary to NSTEMI complicated with COPD exacerbation: Continue with COPD treatment. Continue with current medication for CAD. Spoke with cardiology. Cardiology plans for heart catheterization today. Await findings. Possible discharge as early as today if heart catheterization unremarkable. Will discuss further with cardiology after heart catheterization. Hypertension: Continue medication. Will monitor and adjust appropriately. Hyperlipidemia: Continue medication. GERD: Continue medication. Time Spent Managing Pts Care (In Minutes): 55
--- NOTE | 2020-04-18 12:07 | OP ---
Date of Procedure: 04/18/2020 Surgeon: ANA CONCEPCION Procedure: 1.Selective coronary angiogram. 2.Left heart catheterization. Access: Right radial artery, 6-Martiniquais closed with 6-Martiniquais TR band. Complications: None. Total Sedation Time: 15 minutes. Bleeding: Less than 10 mL. Total Contrast Used: 65 mL. Indication For Procedure: Non-ST elevation myocardial infarction. Description Of Procedure: Patient was brought into the cardiac catheterization laboratory after info rmed consent was signed, prepped and draped in usual sterile fashion. The right radial artery was ac cessed using the ultrasound guidance and pediatric micropuncture kit and we took 6-Martiniquais [place] isabelle ter into the aortic root over the J-wire, engaged the left main coronary artery and the right coronar y artery, took the standard views. Then, we took the J-wire into the aortic root and passed it acros s the aortic valve into the LV, passed the catheter into the LV, recorded LVEDP at 25 mmHg and then u farzaneh pullback there was no gradient difference across aortic valve. This concluded the procedure. We took all wires out and the sheath out and placed a TR band with good hemostasis. No complications. Findings: 1.About 20% to 30% stenosis in mid LAD, very small vessel distally, has 30% to 40% stenosis in mid R CA and 40% stenosis of the first OM branch. No clear culprit was found for the elevated troponin; ho wever, the LVEDP was 25. 2.LVEDP elevated at 25 mmHg. Recommendations: 1.Aggressive medical management of coronary artery disease. 2.Due to the lack of the availability of the functional flow reserve wire and equipment in the isabelle terization laboratory, I recommended to do a nuclear stress test to evaluate the above coronary arter y disease and aggressive medical therapy for coronary artery disease. She continues to have symptoms , especially if the stress test is positive, then we will plan intervention according to the area of hypoperfusion. Another option is to take the patient to [facility] and allow for IFR measurements of al l those vessels including LAD, OM, and RCA. At this point, patient is hemodynamically and clinically stable and I believe she can be discharged and have her follow up with me in 4 weeks in the office. SR/MODL Voice ID: [id number] Report ID: [id number]
--- NOTE | 2020-04-18 12:14 | P.DS ---
Admission Date: 04/16/20 Discharge Date: 04/18/20 Primary Care Provider: Dr. Naqvi Disposition: ROUTINE DISCHARGE Discharge Condition: GOOD Reason for Admission: Shortness of breath Consultations: Cardiology-Dr. Concepcion Procedures: Ct Chest: FINDINGS: A pulmonary embolus is not seen. A thoracic aortic aneurysm is not noted. A pleural effusion is not seen. A pericardial effusion is not seen. A lung consolidation is not present. Areas of scarring within the lungs Hepatic hemangioma IMPRESSION: Negative for a pulmonary embolism. Heart cath: Date of Procedure: 04/18/2020 Surgeon: ANA CONCEPCION Procedure: 1. Selective coronary angiogram. 2. Left heart catheterization. Access: Right radial artery, 6-Tristanian closed with 6-Tristanian TR band. Complications: None. Total Sedation Time: 15 minutes. Bleeding: Less than 10 mL. Total Contrast Used: 65 mL. Indication For Procedure: Non-ST elevation myocardial infarction. Findings: 1. About 20% to 30% stenosis in mid LAD, very small vessel distally, has 30% to 40% stenosis in mid RCA and 40% stenosis of the first OM branch. No clear culprit was found for the elevated troponin; however, the LVEDP was 25. 2. LVEDP elevated at 25 mmHg. Medical Problem List: Shortness of breath secondary to NSTEMI status post heart catheterization showing 20-30% stenosis in mid LAD, very small vessel distally, 30-40% stenosis in the mid RCA, 40% stenosis of the 1st OM branch, complicated with COPD exacerbation Hypertension Hyperlipidemia GERD Brief History of Present Illness: 79 yo HF presented to the ER with shortness of breath. Troponin was elevated indicating NSTEMI and she also had COPD exacerbation. She was admitted for further evaluation. Hospital Course: Patient presented with shortness of breath secondary to NSTEMI. She was seen by Cardiology who recommended heart catheterization. This showed 20-30% stenosis in the mid LAD with very small vessel distally, 30-40% stenosis in mid RCA, 40% stenosis of the 1st OM branch. She tolerated the procedure well. Aggressive medical therapy was recommended. At discharge she is without shortness of breath. At discharge she will continue with ASA 81 mg daily, Plavix 75 mg daily, Metoprolol 12.5 mg twice daily, Lisinopril 10 mg daily and Lipitor 80 mg daily. She will follow up with Cardiology in 4 weeks. Patient has COPD and also presented with COPD exacerbation. She will continue with Prednisone 10 mg daily for 5 days. She will also continue with her home medication: Advair, Spiriva and Xopenex. Recommend follow up with Pulmonary in 2-4 weeks. Patient with HTN. Medication has been adjusted. She will no longer take Norvasc and Catapress. Lisinopril has been decreased. At discharge she will continue with Metoprolol 12.5 mg twice daily and Lisinopril 10 mg daily. She is to monitor her BP daily. Hold medication if BP less than 110 systolic. Further adjustment in medication can be done with her PCP or cardiology if BP not well controlled. Patient with Hyperlipidemia. At discharge she will continue with Lipitor 80 mg daily as recommended above. Patient with GERD. She may continue with her medication. Vital Signs/Physical Exam: Temp Pulse Resp BP Pulse Ox 97.9 F 57 16 94/48 L 98 04/18/20 11:40 04/18/20 11:40 04/18/20 11:40 04/18/20 11:40 04/18/20 11:18 General: Alert, In no apparent distress, Oriented x3, Cooperative HEENT: Atraumatic Neck: Supple Respiratory: Clear to auscultation bilaterally, Normal air movement Cardiovascular: Normal pulses, Regular rate/rhythm Gastrointestinal: Normal bowel sounds, Soft and benign, Non-distended, No masses, No rebound, No guarding Musculoskeletal: No erythema, No tenderness, No warmth Integumentary: No tenderness/swelling, No erythema, No warmth, No cyanosis Neurological: Normal speech, Normal strength at 5/5 x4 extr, Normal tone, Normal affect Laboratory Data at Discharge: WBC 10.0 K/uL (4.3-10.9) D 04/18/20 05:20 Hgb 10.1 g/dL (12.0-15.0) L 04/18/20 05:20 Hct 30.0 % (36.0-45.0) L 04/18/20 05:20 Plt Count 223 K/uL (152-406) 04/18/20 05:20 PT 12.1 SECONDS (9.5-12.5) 04/17/20 16:07 INR 1.03 04/17/20 16:07 APTT 60.4 SECONDS (24.3-36.9) H 04/18/20 06:47 Sodium 140 mmol/L (136-145) 04/18/20 05:20 Potassium 4.4 mmol/L (3.5-5.1) 04/18/20 05:20 BUN 38 mg/dL (7-18) H 04/18/20 05:20 Creatinine 1.25 mg/dL (0.55-1.3) 04/18/20 05:20 Glucose 136 mg/dL (74-106) H 04/18/20 05:20 Magnesium 1.9 mg/dL (1.8-2.4) 04/16/20 16:30 Total Bilirubin 0.3 mg/dL (0.2-1.0) 04/18/20 05:20 AST 62 U/L (15-37) H 04/18/20 05:20 ALT 51 U/L (12-78) 04/18/20 05:20 Alkaline Phosphatase 84 U/L (45-117) 04/18/20 05:20 Troponin I 0.81 ng/mL (0.0-0.045) H* 04/17/20 00:36 Triglycerides 72 mg/dL (<150) 04/17/20 04:53 Cholesterol 186 mg/dL (<200) 04/17/20 04:53 HDL Cholesterol 62 mg/dL (40-60) H 04/17/20 04:53 Cholesterol/HDL Ratio 3.00 04/17/20 04:53 Home Medications: Fluticasone [Flonase 50MCG Nasal [place]*] 1 spr ELIZABETH DAILYPRN PRN 04/16/20 Fluticasone/Salmeterol [Advair 250-50 Diskus] 1 in IH DAILY 04/16/20 Levalbuterol Tartrate [Levalbuterol Tartrate Hfa] 2 in IH DAILYPRN PRN 04/16/20 Mirabegron [Myrbetriq] 50 mg PO DAILY 04/16/20 Omeprazole 40 mg PO DAILY 04/16/20 Tiotropium [place] [Spiriva Respimat] 2 in IH DAILY 04/16/20 Zafirlukast 20 mg PO BID 04/16/20 Aspirin 81 mg PO DAILY #30 tab.chew 04/18/20 Atorvastatin Calcium [Lipitor] 80 mg PO BEDTIME #30 tab 06/15/20 Clopidogrel Bisulfate [Plavix] 75 mg PO DAILY #30 tablet 04/18/20 Metoprolol Tartrate 12.5 mg PO DAILY #30 tablet 04/18/20 lisinopriL [Lisinopril] 10 mg PO DAILY #30 tablet 04/18/20 predniSONE [Prednisone*] 10 mg PO DAILY #5 tab 04/18/20 New Medications: Aspirin 81 mg PO DAILY #30 tab.chew Atorvastatin Calcium [Lipitor] 80 mg PO BEDTIME #30 tab lisinopriL [Lisinopril] 10 mg PO DAILY #30 tablet Metoprolol Tartrate 12.5 mg PO DAILY #30 tablet Clopidogrel Bisulfate [Plavix] 75 mg PO DAILY #30 tablet predniSONE [Prednisone*] 10 mg PO DAILY #5 tab Patient Discharge Instructions: 1. Follow up with PCP in 1 weeks. 2. Patient had SOB related to NSTEMI. Heart catheterization performed. This showed 20-30% stenosis in the mid LAD with very small vessel distally, 30-40% stenosis in mid RCA, 40% stenosis of the 1st OM branch. She tolerated the procedure well. Aggressive medical therapy was recommended. At discharge she is without shortness of breath. At discharge she will continue with ASA 81 mg daily, Plavix 75 mg daily, Metoprolol 12.5 mg twice daily, Lisinopril 10 mg daily and Lipitor 80 mg daily. She will follow up with Cardiology in 4 weeks. 3. Patient has COPD and also presented with COPD exacerbation. She will continue with Prednisone 10 mg daily for 5 days. She will also continue with her home medication: Advair, Spiriva and Xopenex. Recommend follow up with Pulmonary in 2-4 weeks. 4. Patient with HTN. Medication has been adjusted. She will no longer take Norvasc and Catapress. Lisinopril has been decreased. At discharge she will continue with Metoprolol 12.5 mg twice daily and Lisinopril 10 mg daily. She is to monitor her BP daily. Hold medication if BP less than 110 systolic. Further adjustment in medication can be done with her PCP or cardiology if BP not well controlled. 5. Patient with Hyperlipidemia. At discharge she will continue with Lipitor 80 mg daily as recommended above. 6. Patient with GERD. She may continue with her medication. Diet: AHA Activity: Ad bridget Followup: Raúl Garza MD [ACTIVE - CAN ADMIT] - Time spent managing pt's care (in minutes): 55
[2020-04-18 13:05] VITALS: O2SAT 94
[2020-04-18] MEDS ORDERED: ALBUTEROL 2.5 MG/3 ML NEB SOL NEB PRN (15:00)
[2020-04-18] MEDS ORDERED: IPRATROPIUM BROM 0.5MG/2.5ML NEB PRN (15:00)
--- NOTE | 2020-04-18 16:08 | CON ---
Date of Consultation: 04/17/2020 Chief Complaint: Shortness of breath. History Of Present Illness: This is an 79-year-old female with a past medical history of COPD, hyper tension, presented to the emergency room after she had a choking episode on a cough syrup. Did not h ave any chest pain. Became slightly short of breath. At the emergency room, she was wheezing and sh ort-winded. Nebulizer treatment helped the situation. However, troponin was elevated. EKG without acute changes from before. She had a CTA and ruled out pulmonary embolism. At the time of evaluatio n, patient was asymptomatic. Apparently, she had a coronary angiogram about 10 years ago that was no rmal. Past Medical History: As outlined above in HPI. Medications: Refer reconciliation sheet for detailed list. Allergies: PENICILLIN. Social History: She does not smoke or drink. Does not use drugs. Family History: No premature coronary artery disease or cancer. Review of Systems: All systems reviewed and are negative except for mentioned in HPI. Physical Examination: Vital Signs: Her temperature is 98.4, pulse is 70, breathing at 18, blood pressure 132/58, saturatin g 99%. General: Pleasant elderly female in no apparent distress. Head and Neck: Pupils are equal, react to light. Intact eye movements. No JVD. No cervical lympha denopathy. Neck supple. Thyroid is not enlarged. Lungs: Clear to auscultation. No stridor or wheezing. No accessory muscle use. Heart: Regular rate and rhythm. No extra sounds. Abdomen: Soft, nontender. Bowel sounds positive. No organomegaly. No masses or hernia. No rigidi ty or rebound. Extremities: There is no edema, clubbing, cyanosis. Intact pulses. Skin: No rash. Neurologic: Alert, awake, oriented x3. No acute focal deficits. Lymph Nodes: No cervical or axillary adenopathy. Investigations: CTA of the lungs was negative for PE and troponin peaked at 1.21. Creatinine is 1.2 5. BUN is 38. Assessment And Plan: 1.Luv-LX-piixrwbod myocardial infarction. Troponin is trending down. We will schedule the patient for coronary angiogram and discussed the risks, benefits, alternatives with the patient and daughter and they agreed to procedure and signed informed consent. Meanwhile, continue heparin drip, aspirin, high-dose statin. 2.Hypertension. Blood pressure is acceptable. Continue home medications. 3.Chronic obstructive pulmonary disease exacerbation. The patient is being managed by primary hospi talist. Continue oxygen supplements, nebulizer treatment cautiously. /VIPIN Voice ID: [id number] Report ID: [id number]
--- NOTE | 2020-04-18 16:08 | PN ---
Date of Progress Note: 04/18/2020 Subjective: Patient is seen at bedside, doing well. No complaints. Review of Systems: No chest pain, shortness of breath, orthopnea, cough. No nausea, vomiting, diarrhea. No abdominal p ain. All other systems reviewed and they are negative. Past Surgical History: She is status post cardiac catheterization. Physical Examination: Vital Signs: Temperature is 97.2, pulse 59, breathing at 18, blood pressure 105/50, saturating 98%. General: Pleasant elderly female, in no apparent distress. Head and Neck: Pupils are equal, reactive to light. Intact eye movements. Neck: No JVD. No cervical lymphadenopathy. Neck is supple. Thyroid is not enlarged. Lungs: Clear to auscultation bilaterally. No rhonchi, rales, or crackles. No accessory muscle use. Heart: Regular rate and rhythm. No extra sounds. Abdomen: Soft, nontender. Bowel sounds positive. No organomegaly. No masses or hernia. No rigidi ty or rebound. Extremities: No edema, clubbing, cyanosis. Intact pulses. Skin: No rash. Neurologic: Alert, awake, oriented x3. No acute focal deficits appreciated. Lymph Nodes: No cervical or axillary lymphadenopathy. Investigations: Labs are reviewed. Assessment/plan: 1.Non-ST elevation myocardial infarction, status post heart catheterization. No culprit was found. She has [id number] nonobstructive coronary artery disease that needs further evaluation with I FR or FFR, that is not available in this hospital. From my standpoint, patient can be discharged rex e on medical management with high-dose statin, aspirin and nitrates, beta nash if she tolerates an d we will allow that for the next 4 weeks. If she gets stable, we will continue to monitor. If not, if she continues to have chest pain, we will plan to take her to higher level of care facility and d o FFR-guided intervention. 2.Hypertension. Blood pressure is controlled. Continue current management. I appreciate allowing me to participate in this patient's care. I will sign off on this case and hav e the patient please follow up with me in the office in 4 weeks. /VIPIN Voice ID: [id number] Report ID: [id number]
[2020-04-18 16:22] VITALS: BP 111/63; TEMP 97.3
--- NOTE | 2020-04-19 08:02 | ECHO ---
HEIGHT: 5 ft 2 in WEIGHT: 134 lb 9.6 oz DATE OF STUDY: 04/18/[address]: Christelle aH MD 2-DIMENSIONAL: YES M.MODE: YES DOPPLER: YES COLOR FLOW: YES TDS: NO PORTABLE: NO DEFINITY: NO BUBBLE STUDY: NO DIAGNOSIS: NSTEMI CARDIAC HISTORY: CATHERIZATION: YES SURGERY: NO PROSTHETIC VALVE: NO PACEMAKER: NO MEASUREMENTS (cm) DIASTOLIC (NORMALS) SYSTOLIC (NORMALS) IVSd 0.9 (0.6-1.2) LA Diam 3.0 (1.9-4.0) LVEF 54% LVIDd 4.8 (3.5-5.7) LVIDs 3.4 (2.0-3.5) %FS 28% LVPWd 0.8 (0.6-1.2) Ao Diam 2.2 (2.0-3.7) 2 DIMENSIONAL ASSESSMENT: RIGHT ATRIUM: NORMAL LEFT ATRIUM: ENLARGED RIGHT VENTRICLE: NORMAL LEFT VENTRICLE: NORMAL TRICUSPID VALVE: MILD TRICUSPID REGURGITATION MITRAL VALVE: MILD MITRAL ANNULAR CALCIFICTION PULMONIC VALVE: NORMAL AORTIC VALVE: MILD CALCIFICATION, NO AORTIC STENOSIS PERICARDIAL EFFUSION: NONE AORTIC ROOT: NORMAL LEFT VENTRICULAR WALL MOTION: WALL MOTION ABNORMALITY DUE TO LEFT BUNDLE BRANCH BLOCK. DOPPLER/COLOR FLOW: COMMENTS: NORMAL LEFT VENTRICULAR EJECTION FRACTION OF 55-60%. WALL MOTION ABNORMALITY DUE TO LEFT BUNDLE BRANCH BLOCK. DIASTOLIC DYSFUNCTION IS PRESENT. MILD TRICUSPID REGURGITATION. AT LEAST MODERATE PULMONARY HYPERTENSION. RIGHT VENTRICULAR SYSTOLIC PRESSURE 55-60 mmHg. TECHNOLOGIST: No FERREIRA
== END 2020-04-18 16:50 | disposition home or self-care (01) | DRG 281 ==
LOC: ER 15:17 → ERHOLD 18:26 → 3RD-ICU 20:47 → 2ND 04-17 16:25
PROVIDERS: ADMIT Family Medicine; ATTEND Family Medicine
PROC: 4A023N7 Measurement of Cardiac Sampling and Pressure, Left Heart, Percutaneous Approach (ICD-10-PCS; principal; 2020-04-18)
PROC: B2111ZZ Fluoroscopy of Multiple Coronary Arteries using Low Osmolar Contrast (ICD-10-PCS; 2020-04-18)
DX: I21.4 Non-ST elevation (NSTEMI) myocardial infarction (principal); J44.1 Chronic obstructive pulmonary disease with (acute) exacerbation; I10 Essential (primary) hypertension; F17.200 Nicotine dependence, unspecified, uncomplicated; E78.5 Hyperlipidemia, unspecified; I25.10 Atherosclerotic heart disease of native coronary artery without angina pectoris; D18.09 Hemangioma of other sites; I44.7 Left bundle-branch block, unspecified; K21.9 Gastro-esophageal reflux disease without esophagitis; Z20.828 Contact with and (suspected) exposure to other viral communicable diseases; R06.02 Shortness of breath; R05 Cough; Z88.0 Allergy status to penicillin; Z90.49 Acquired absence of other specified parts of digestive tract; Z90.710 Acquired absence of both cervix and uterus
CPT/HCPCS: 36415; 71045; 71275; 80048; 80053; 80061; 80076; 81003; 83735; 83880; 84132; 84484; 85025; 85379; 85610; 85730; 87040; 93005; 93306; 93458; 94760; 96361; 96372; 96374; 96375; 99285; C1893; J1644; J1650; J2250; J2920; J2930; J3010; J7030; J7040; J7512; Q9967; U0002